=== PATIENT | female | born 1965 | race Caucasian/White ===

== ENCOUNTER → 2016-12-02 | Outpatient (CLI) | payer BC ==
--- NOTE | 2016-12-05 10:04 | MM ---
Reason for exam: screening (asymptomatic). Last mammogram was performed 5 years and 7 months ago. Physical Findings: A clinical breast exam by your physician is recommended on an annual basis and results should be correlated with mammographic findings. MG Screening Mammo w CAD Bilateral CC and MLO view(s) were taken. Prior study comparison: April 29, 2011, mammogram, performed at [facility]. August 30, 2007, mammogram, performed at [facility]. There are scattered fibroglandular densities. Benign calcifications. There is no discrete abnormality. No significant changes when compared with prior studies. ASSESSMENT: Benign, BI-RAD 2 RECOMMENDATION: Routine screening mammogram of both breasts in 1 year.
== END | disposition home or self-care (01) ==
LOC: RADMAMWWP 12:24
PROVIDERS: ATTEND Internal Medicine
DX: Z12.31 Encounter for screening mammogram for malignant neoplasm of breast (principal)

== ENCOUNTER 2017-04-14 21:00 | Emergency (ER) | payer BC | END 2017-04-14 23:55 | disposition home or self-care (01) | LOC: EC 21:00 | DX: R04.0 Epistaxis (principal); J32.9 Chronic sinusitis, unspecified | CPT/HCPCS: 99282 ==

== ENCOUNTER 2021-07-14 14:33 | Emergency (ER) | payer BC ==
[2021-07-14] MEDS ORDERED: KETOROLAC 15 MG/ML 1 ML VIAL IM STA (15:17)
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
[2021-07-14] MEDS ORDERED: predniSONE 20 MG TAB PO STA (16:43)
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
[2021-07-14 16:59] VITALS: BP 137/81; PULSE 68; RESP 20; TEMP 98
== END 2021-07-14 16:59 | disposition home or self-care (01) ==
LOC: EC 14:33
DX: M43.6 Torticollis (principal); F17.200 Nicotine dependence, unspecified, uncomplicated
CPT/HCPCS: 93005; 72125; 99284; 96372; J1885; J7512

== ENCOUNTER 2021-11-26 07:50 | Emergency (ER) | payer BC ==
[2021-11-26 07:58] VITALS: RESP 18
[2021-11-26] MEDS ORDERED: ACETAMINOPHEN TAB 500 MG TAB PO STA (07:58)
--- NOTE | 2021-11-26 08:01 | ED ---
General Adult HPI - General Chief complaint: Headache Stated complaint: flu symptoms Time Seen by Provider: 11/26/21 07:50 Source: patient, EMS, RN notes reviewed, old records reviewed Mode of arrival: EMS Limitations: no limitations - History of Present Illness Initial comments: This is a 55-year-old female who presents emergency Department stating that she woke up at 12:45 AM and had a headache and had the chills. Patient states she went back to bed when she woke up this morningchills continued as did the headaches so she called the ambulance. Patient denies any shortness of breath or difficulty breathing. Patient denies any neck stiffness. Patient denies any fever. Patient states she did not take any Motrin or Tylenol. Patient denies any abdominal pain. Patient denies any nausea vomiting. Patient denies any dysuria hematuria urinary frequency. Patient states she had 3 Modera COVID shots. Patient states the headache is worse than normal but it's severe. Patient states is diffuse throughout her head. - Related Data Home Medications Medication Instructions Recorded Confirmed Atorvastatin [Lipitor] 10 mg PO DAILY 04/15/17 07/14/21 Levothyroxine Sodium [Synthroid] 125 mcg PO DAILY 04/15/17 07/14/21 atenoloL [Tenormin] 25 mg PO HS 04/15/17 07/14/21 Cholecalciferol [Vitamin D3 (25 25 mcg PO DAILY 07/14/21 07/14/21 Mcg = 1000 Iu)] Previous Rx's Medication Instructions Recorded methocarbamoL [Robaxin] 750 mg PO QID PRN #24 tab 07/14/21 predniSONE [Deltasone] 20 mg PO BID #10 tab 07/14/21 Nirmatrelvir/Ritonavir [Paxlovid 1 each PO BID 5 Days tab 11/26/21 2X150 mg-100 mg (Eua)] Allergies Allergy/AdvReac Type Severity Reaction Status Date / Time Iodinated Contrast Media Allergy Anaphylaxis Verified 07/14/21 15:54 [Iodinated Contrast- Oral and IV Dye] Review of Systems ROS Statement: Those systems with pertinent positive or pertinent negative responses have been documented in the HPI. ROS Other: All systems not noted in ROS Statement are negative. Past Medical History Past Medical History: Thyroid Disorder Additional Past Medical History / Comment(s): syncope History of Any Multi-Drug Resistant Organisms: None Reported Past Surgical History: Section, Hysterectomy Past Psychological History: No Psychological Hx Reported Smoking Status: Current every day smoker Past Alcohol Use History: None Reported Past Drug Use History: None Reported General Exam - General Exam Comments Initial Comments: GENERAL: Patient is well-developed and well-nourished. Patient is nontoxic and well- hydrated and is in mild distress. ENT: Neck is soft and supple. No significant lymphadenopathy is noted. Oropharynx is clear. Moist mucous membranes. Neck has full range of motion without eliciting any pain. EYES: The sclera were anicteric and conjunctiva were pink and moist. Extraocular movements were intact and pupils were equal round and reactive to light. Eyelids were unremarkable. PULMONARY: Unlabored respirations. Good breath sounds bilaterally. No audible rales rhonchi or wheezing was noted. CARDIOVASCULAR: There is a regular rate and rhythm without any murmurs gallops or rubs. ABDOMEN: Soft and nontender with normal bowel sounds. SKIN: Skin is clear with no lesions or rashes and otherwise unremarkable. NEUROLOGIC: Patient is alert and oriented x3. Cranial nerves II through XII are grossly intact. Motor and sensory are also intact. Normal speech, volume and content. Symmetrical smile. MUSCULOSKELETAL: Normal extremities with adequate strength and full range of motion. LYMPHATICS: No significant lymphadenopathy is noted PSYCHIATRIC: Normal psychiatric evaluation. Limitations: no limitations Course Vital Signs 11/26/21 07:52 Temperature 99.3 F Pulse Rate 82 Respiratory 18 Rate Blood Pressure 108/71 O2 Sat by Pulse 95 Oximetry Medical Decision Making - Medical Decision Making Chest x-ray shows no acute abnormality. We did not have any monoclonal antibodies for the patient's COVID. - Lab Data Result diagrams: 11/26/21 08:01 11/26/21 08:01 Lab Results 11/26/21 11/26/21 11/26/21 Range/Units 08:01 08:01 08:01 WBC 4.7 (3.8-10.6) k/uL RBC 4.43 (3.80-5.40) m/uL Hgb 13.4 (11.4-16.0) gm/dL Hct 41.4 (34.0-46.0) % MCV 93.4 (80.0-100.0) fL MCH 30.2 (25.0-35.0) pg MCHC 32.3 (31.0-37.0) g/dL RDW 12.8 (11.5-15.5) % Plt Count 131 L (150-450) k/uL MPV 7.1 Neutrophils % 85 % Lymphocytes % 6 % Monocytes % 5 % Eosinophils % 2 % Basophils % 1 % Neutrophils # 4.0 (1.3-7.7) k/uL Lymphocytes # 0.3 L (1.0-4.8) k/uL Monocytes # 0.2 (0-1.0) k/uL Eosinophils # 0.1 (0-0.7) k/uL Basophils # 0.0 (0-0.2) k/uL Sodium 132 L (137-145) mmol/L Potassium 3.9 (3.5-5.1) mmol/L Chloride 104 (98-107) mmol/L Carbon Dioxide 21 L (22-30) mmol/L Anion Gap 7 mmol/L BUN 13 (7-17) mg/dL Creatinine 0.71 (0.52-1.04) mg/dL Est GFR (CKD-EPI)AfAm >90 (>60 ml/min/1.73 sqM) Est GFR (CKD-EPI)NonAf >90 (>60 ml/min/1.73 sqM) Glucose 94 (74-99) mg/dL Calcium 8.4 (8.4-10.2) mg/dL Total Bilirubin 0.5 (0.2-1.3) mg/dL AST 24 (14-36) U/L ALT 15 (4-34) U/L Alkaline Phosphatase 85 (38-126) U/L Total Protein 6.7 (6.3-8.2) g/dL Albumin 4.0 (3.5-5.0) g/dL Coronavirus (PCR) Detected A (Not Detectd) Disposition Clinical Impression: COVID-19 Disposition: HOME SELF-CARE Condition: Good Prescriptions: Nirmatrelvir/Ritonavir [Paxlovid 2X150 mg-100 mg (Eua)] 1 each PO BID 5 Days tab Is patient prescribed a controlled substance at d/c from ED?: No Referrals: Dustin Ocampo DO [Primary Care Provider] - 1-2 days Time of Disposition: 09:02
[2021-11-26 08:27] LABS: Basophils % (A) 1 %; Eosinophils # (A) 0.1 k/uL (0-0.7); Eosinophils % (A) 2 %; HCT 41.4 % (34.0-46.0); HGB 13.4 gm/dL (11.4-16.0); Lymphocytes # (A) 0.3 k/uL (1.0-4.8); Lymphocytes % (A) 6 %; MCH 30.2 pg (25.0-35.0); MCHC 32.3 g/dL (31.0-37.0); MCV 93.4 fL (80.0-100.0); Mean Platelet Volume 7.1; Monocytes # (A) 0.2 k/uL (0-1.0); Monocytes % (A) 5 %; Neutrophils % (A) 85 %; Platelet Count 131 k/uL (150-450); RBC 4.43 m/uL (3.80-5.40); RDW 12.8 % (11.5-15.5); WBC 4.7 k/uL (3.8-10.6)
[2021-11-26 08:42] LABS: ALT 15 U/L (4-34); AST 24 U/L (14-36); African American GFR (CKD) >90 (>60 ml/min/1.73 sqM); Alkaline Phosphatase 85 U/L (38-126); Anion Gap 7 mmol/L; Blood Urea Nitrogen 13 mg/dL (7-17); Calcium 8.4 mg/dL (8.4-10.2); Carbon Dioxide 21 mmol/L (22-30); Chloride 104 mmol/L (98-107); Glucose 94 mg/dL (74-99); Non-African American GFR(CKD) >90 (>60 ml/min/1.73 sqM); Potassium 3.9 mmol/L (3.5-5.1); Sodium 132 mmol/L (137-145); Total Bilirubin 0.5 mg/dL (0.2-1.3); Total Protein 6.7 g/dL (6.3-8.2)
--- NOTE | 2021-11-26 08:49 | XR ---
EXAMINATION TYPE: XR chest 2V DATE OF EXAM: 11/26/2021 COMPARISON: NONE HISTORY: Difficulty in breathing. TECHNIQUE: Frontal and lateral views of the chest are obtained. FINDINGS: There is no focal air space opacity, pleural effusion, or pneumothorax seen. The cardiac silhouette size is within normal limits. The osseous structures are intact. IMPRESSION: No acute process.
[2021-11-26 09:31] VITALS: BP 100/53; PULSE 79; TEMP 98.3
[2021-11-26 09:42] LABS: Appearance,Urine Clear (Clear); Bilirubin,Urine Negative (Negative); Blood,Urine Moderate (Negative); Color,Urine Yellow; Glucose,Urine (UA) Negative (Negative); Hyaline Casts,Urine 1 /lpf (0-2); Ketones,Urine Negative (Negative); Leukocyte Esterase,Urine Negative (Negative); Mucus,Urine Few /hpf; Nitrite,Urine Negative (Negative); Protein,Urine Trace (Negative); RBC,Urine 3 /hpf (0-5); Specific Gravity,Urine 1.019 (1.001-1.035); Squamous Epithelial Cell,Urine 1 /hpf (0-4); WBC,Urine 1 /hpf (0-5)
== END 2021-11-26 09:31 | disposition home or self-care (01) ==
LOC: EC 07:50
DX: U07.1 COVID-19 (principal); E07.9 Disorder of thyroid, unspecified; F17.200 Nicotine dependence, unspecified, uncomplicated; Z91.041 Radiographic dye allergy status; Z79.890 Hormone replacement therapy
CPT/HCPCS: 36415; 71046; 80053; 81001; 85025; 87635; 99284

== ENCOUNTER → 2022-09-05 | Outpatient (CLI) | payer OTHER ==
[2022-09-05 16:03] LABS: Anion Gap 10.9 mmol/L (10.00-18.00); Carbon Dioxide 25.8 mmol/L (20.0-27.5); Potassium 5.3 mmol/L (3.5-5.5)
[2022-09-05 16:54] LABS: Basophils # (A) 0.04 X 10*3/uL (0.00-0.10); Basophils % (A) 0.5 %; Eosinophils # (A) 0.13 X 10*3/uL (0.04-0.35); Eosinophils % (A) 1.7 %; HCT 46.1 % (37.2-46.3); HGB 14.6 g/dL (12.0-15.0); Immature Grans, Automated 0.5 %; Lymphocytes # (A) 1.29 X 10*3/uL (0.90-5.00); Lymphocytes % (A) 16.6 %; MCH 30.9 pg (27.0-32.0); MCHC 31.7 g/dL (32.0-37.0); MCV 97.7 fL (80.0-97.0); Mean Platelet Volume 10.4 fL (9.5-12.2); Monocytes % (A) 3.9 %; NRBC Per 100 WBC 0 /100 WBCS (0.0-0.0); Neutrophils # (A) 5.98 X 10*3/uL (1.80-7.70); Neutrophils % (A) 76.8 %; Platelet Count 185 X 10*3/uL (140-440); RBC 4.72 X 10*6/uL (4.10-5.20); RDW 13.2 % (11.5-14.5); WBC 7.78 X 10*3/uL (4.50-10.00)
== END | disposition home or self-care (01) ==
LOC: LABWHC1 10:58
PROVIDERS: ATTEND Orthopaedic Surgery
DX: Z01.818 Encounter for other preprocedural examination (principal); M23.91 Unspecified internal derangement of right knee
CPT/HCPCS: 36415; 80051; 85025; 93005

== ENCOUNTER → 2022-09-14 | Outpatient (CLI) | payer OTHER | END | disposition home or self-care (01) | LOC: LABWHC1 13:07 | PROVIDERS: ATTEND Nurse Practitioner Family | DX: I69.911 Memory deficit following unspecified cerebrovascular disease (principal); E55.9 Vitamin D deficiency, unspecified | CPT/HCPCS: 36415; 82306; 82607; 84439; 84443; 84481 ==

== ENCOUNTER 2022-09-29 11:47 | Day surgery (SDC) | payer OTHER ==
[2022-09-26 12:52] VITALS: BMI 30.7
--- NOTE | 2022-09-29 07:44 | HP ---
HISTORY AND PHYSICAL DATE OF SURGERY: Surgery is scheduled for 09/29/2022. HISTORY OF PRESENT ILLNESS: Terra Palmer is a 56-year-old patient seen with progressive right knee pain. We discussed options for treatment, status post right knee arthroscopy. Consent was obtained. PAST MEDICAL HISTORY: Hypertension, hypothyroidism, hyperlipidemia. PAST SURGICAL HISTORY: Appendectomy, section, tonsillectomy. DAILY MEDICATIONS: Atenolol, atorvastatin, levothyroxine, meloxicam. ALLERGIES: None. SOCIAL HISTORY: She denies tobacco use. PHYSICAL EVALUATION OF THE RIGHT KNEE: Range of motion is 0 to 130 degrees. Mild effusion. Tenderness, medial joint line. Positive medial Jez's. Ligament is stable. Hip rotation without pain. Distal neurovascular exam is intact. IMAGING STUDIES: MRI of the right knee revealed medial meniscal tear. Large Perdue cyst and osteoarthritic changes. IMPRESSION: 1. Internal derangement of right knee with medial meniscal tear. 2. Hypertension. 3. Hyperlipidemia. 4. Hypothyroidism. PLAN: Right knee arthroscopy with partial medial meniscectomy and debridement. MMODL / IJN: [id number] /
[~2022-09-29 11:47] MED LIST: DEXAMETHASONE SOD PHOSPHATE 4 MG/ML 1 ML VIAL IV ONE; HYDROmorphone 0.5 MG/0.5 ML SYRINGE IVP PRN; LACTATED RINGERS 1,000 ML IV SCH; LIDOCAINE 1% (10MG/ML) FOR IV START INTRADERMA PRN; ONDANSETRON 4 MG/2 ML VIAL IVP ONE; droPERidol 5 MG/2 ML VIAL IVP ONE
[2022-09-29] MEDS ORDERED: PROPOFOL 10 MG/ML 20 ML VIAL IV ONE (12:47)
[2022-09-29] MEDS ORDERED: fentaNYL (PF) 50 MCG/ML 2 ML AMP ONE (12:47)
[2022-09-29] MEDS ORDERED: MIDAZOLAM 2 MG/2 ML VIAL ONE (12:47)
[2022-09-29] MEDS ORDERED: ePHEDrine 50 MG/ML 1 ML VIAL ONE (12:47)
[2022-09-29] MEDS ORDERED: LIDOCAINE 2% INJ 20 MG/ML (2 ML VIAL) ONE (12:47)
[2022-09-29] MEDS ORDERED: BUPIVACAINE (PF) 0.25% 30 ML VIAL SQ ONE ×2 (13:10→13:20)
[2022-09-29 13:36] VITALS: TEMP 97.2
--- NOTE | 2022-09-29 13:36 | P.OP ---
Date of Procedure: 09/29/22 Preoperative Diagnosis: Internal derangement right knee Postoperative Diagnosis: 1. Tear medial and lateral meniscus right knee 2. Grade 4 chondromalacia femoral sulcus right knee 3. Grade 2 chondromalacia medial femoral condyle right 4. Reactive synovitis medial, lateral and suprapatellar compartments right knee Procedure(s) Performed: 1. Arthroscopic partial medial and lateral meniscectomy right knee 2. Arthroscopic microfracture femoral sulcus right knee 3. Arthroscopic partial synovectomy medial, lateral and suprapatellar compartments right knee 4. Arthroscopic chondroplasty medial femoral condyle right knee Anesthesia: JENA, local Surgeon: Jorge Stone Estimated Blood Loss (ml): 7 Pathology: none sent Condition: stable Disposition: PACU Indications for Procedure: 56-year-old patient was seen with progressive right knee pain. After treatment options were discussed with her, she elected to proceed with arthroscopy. Operative Findings: See description of procedure Description of Procedure: Patient was taken to the operative suite. Patient underwent a general anesthetic by the department of anesthesia. Patient was given preoperative antibiotics. The right lower extremity was placed in a well-padded arthroscopic leg sanchez. The right leg was prepped and draped in the normal sterile orthopedic fashion. A lateral parapatellar and suprapatellar incision was made. Trochars were inserted. Arthroscopy was initiated. Suprapatellar pouch revealed diffuse thick reactive synovitis. The patellofemoral joint appeared to articulate congruently. There was grade 1 chondromalacia of the patella with no tears and grade 4 chondromalacia of the femoral sulcus with areas of exposed bone. The scope was guided into the medial gutter. No loose bodies or plica were identified. The scope was then guided into the medial compartment. A medial parapatellar incision was made. Trocar inserted followed by probe. There was a radial tear posterior horn medial meniscus. There were grade 1/2 chondromalacia changes medial femoral condyle with some osteochondral flap tears. There was thick reactive synovitis anteriorly. I performed a partial medial meniscectomy getting down to stable meniscal tissue. I performed a chondroplasty of the medial femoral condyle getting down to stable osteochondral tissue. I performed a partial synovectomy decompressing the reactive synovitis. The residual meniscus was probed and was found to be stable. The residual osteochondral surface was stable. There was good decompression of the synovitis. Scope and probe were then guided into the intercondylar notch. Cruciates were identified, probed and found to be stable. The scope and probe were then guided into lateral compartment. For was a radial tear mid body lateral meniscus. There was no chondromalacia involving lateral compartment. Her was some thick reactive synovitis anteriorly. I performed a partial lateral meniscectomy getting down to stable meniscal tissue. I performed a partial s ynovectomy compressing the reactive synovitis. The residual meniscus was stable. There was good decompression of the synovitis. The scope was in guided back into the suprapatellar compartment. I used a motorized shaver and I debrided out some piecemeal fragments of meniscus I encountered. I now removed the shaver. I introduced a microfracture awl. I performed a microfracture to 3 separate areas of exposed bone in the femoral sulcus penetrating the bone with resultant bleeding at the microfracture sites. I now introduced a motorized shaver and performed a partial synovectomy. The shaver was removed. There was good decompression of the synovitis. There is the residual osteochondral surface of the femoral sulcus appears stable. I took one more look around the entire knee, no residual debris. Instruments were now removed from the joint. The joint was infiltrated with .25% Marcaine. Steri-Strips were applied to the portal sites. Sterile dressings were applied. The patient was placed into a NURIA hose. No tourniquet was utilized. The patient was awakened, transferred to a bed and taken to recovery stable satisfactory condition.
[2022-09-29 13:47] VITALS: RESP 16
[2022-09-29 14:33] VITALS: BP 149/77; PULSE 89
== END 2022-09-29 14:51 | disposition home or self-care (01) ==
LOC: OR 11:47
PROVIDERS: ATTEND Orthopaedic Surgery
DX: S83.241A Other tear of medial meniscus, current injury, right knee, initial encounter (principal); S83.281A Other tear of lateral meniscus, current injury, right knee, initial encounter; M65.861 Other synovitis and tenosynovitis, right lower leg; M94.261 Chondromalacia, right knee; M17.11 Unilateral primary osteoarthritis, right knee; M71.21 Synovial cyst of popliteal space [Baker], right knee; I10 Essential (primary) hypertension; E78.5 Hyperlipidemia, unspecified; E03.9 Hypothyroidism, unspecified; F17.200 Nicotine dependence, unspecified, uncomplicated; F41.9 Anxiety disorder, unspecified; F32.A Depression, unspecified; Z79.890 Hormone replacement therapy; Z79.899 Other long term (current) drug therapy; Z91.041 Radiographic dye allergy status
CPT/HCPCS: 29879; 29880; J2250; J1100; J0690; J2405; J3010; J2704; J2001

== ENCOUNTER → 2022-11-09 | Outpatient (CLI) | payer OTHER ==
[2022-11-09 20:13] LABS: Anion Gap 13.8 mmol/L (4.00-12.00); Carbon Dioxide 25.2 mmol/L (21.6-31.8)
[2022-11-09 20:36] LABS: HGB 14.6 d/dL (12.0-15.0); MCH 31.3 pg (27.0-32.0); MCHC 33.2 d/dL (32.0-37.0); MCV 94.2 FL (80.0-97.0); Mean Platelet Volume 10.4 FL (9.5-12.2); NRBC Per 100 WBC 0 X 10*3/uL (0.00-0.01); Platelet Count 185 X 10*3/uL (140-440); RBC 4.67 X 10*6/uL (4.10-5.20); RDW 13.2 % (11.5-14.5); WBC 8.53 X 10*3/uL (4.50-10.00)
[2022-11-09 21:06] LABS: Basophils # (A) 0.03 X 10*3/uL (0.00-0.10); Basophils % (A) 0.4 %; Eosinophils # (A) 0.13 X 10*3/uL (0.04-0.35); Eosinophils % (A) 1.5 %; Lymphocytes # (A) 1.55 X 10*3/uL (0.90-5.00); Lymphocytes % (A) 18.2 %; Monocytes # (A) 0.43 X 10*3/uL (0.20-1.00); Neutrophils # (A) 6.35 X 10*3/uL (1.80-7.70); Neutrophils % (A) 74.4 %
== END | disposition home or self-care (01) ==
LOC: LABWHC1 15:25
PROVIDERS: ATTEND Orthopaedic Surgery
DX: Z01.812 Encounter for preprocedural laboratory examination (principal); M23.92 Unspecified internal derangement of left knee
CPT/HCPCS: 36415; 80051; 85025

== ENCOUNTER 2022-11-23 08:17 | Day surgery (SDC) | payer OTHER ==
[2022-11-17 16:31] VITALS: BMI 30.7
--- NOTE | 2022-11-23 07:34 | HP ---
HISTORY AND PHYSICAL DATE OF SURGERY: 11/23/2022. HISTORY OF PRESENT ILLNESS: Terra Palmer is a 56-year-old patient seen with progressive left knee pain failing conservative treatment measures. After having options discussed, she elected to proceed with left knee arthroscopy. Consent regarding the procedure was obtained. PAST MEDICAL HISTORY: Hypertension, hyperlipidemia, and hypothyroidism. PAST SURGICAL HISTORY: Appendectomy, section, and tonsillectomy. DAILY MEDICATIONS: 1. Atenolol. 2. Atorvastatin. 3. Levothyroxine. 4. Multivitamin. ALLERGIES: None. SOCIAL HISTORY: She smokes cigarettes. PHYSICAL EVALUATION OF THE LEFT KNEE: Range of motion is 0 to 130 degrees. Mild effusion. Tenderness in the medial joint line. Medial patellofemoral crepitus on range of motion. Positive medial Jez's. Ligaments are stable. Hip rotation is without pain. Distal neurovascular exam is intact. IMAGING STUDIES: Radiographs of the left knee revealed mild osteoarthritis. MRI left knee revealed medial meniscal tear and Perdue's cyst. IMPRESSION: 1. Internal derangement of left knee with medial meniscal tear. 2. Hypertension. 3. Hyperlipidemia. 4. Hypothyroidism. PLAN: Left knee arthroscopy with partial medial meniscectomy and debridement. MMODL / IJN: [id number] /
[~2022-11-23 08:17] MED LIST changes: -HYDROmorphone 0.5 MG/0.5 ML SYRINGE IVP PRN; +SCOPOLAMINE 1 MG/72 HR PATCH TRANSDERM ONE
[2022-11-23] MEDS ORDERED: BUPIVACAINE (PF) 0.25% 30 ML VIAL SQ ONE ×2 (09:18→09:48)
[2022-11-23] MEDS ORDERED: fentaNYL (PF) 50 MCG/ML 2 ML AMP ONE (09:23)
[2022-11-23] MEDS ORDERED: PROPOFOL 10 MG/ML 20 ML VIAL IV ONE (09:23)
[2022-11-23] MEDS ORDERED: MIDAZOLAM 2 MG/2 ML VIAL ONE (09:23)
[2022-11-23] MEDS ORDERED: LIDOCAINE 2% INJ 20 MG/ML (2 ML VIAL) ONE (09:23)
[2022-11-23 10:08] VITALS: RESP 16; TEMP 96.9
--- NOTE | 2022-11-23 10:11 | P.OP ---
Date of Procedure: 11/23/22 Preoperative Diagnosis: Internal derangement left knee Postoperative Diagnosis: 1. Tear medial meniscus left knee 2. Grade 3/4 chondromalacia lateral femoral condyle left knee 3. Reactive synovitis medial, lateral and suprapatellar compartments left knee 4. Grade 3 chondromalacia medial femoral condyle left knee 5. Grade 1 chondromalacia patella left knee Procedure(s) Performed: 1. Arthroscopic partial medial meniscectomy left knee 2. Arthroscopic microfracture lateral femoral condyle left knee 3. Arthroscopic partial synovectomy medial, lateral and suprapatellar compartments left knee 4. Arthroscopic chondroplasty medial femoral condyle left knee 5. Arthroscopic chondroplasty lateral femoral condyle left knee 6. Arthroscopic chondroplasty patella left knee Anesthesia: ARTHUR, local Surgeon: Jorge Stone Estimated Blood Loss (ml): 6 Pathology: none sent Condition: stable Disposition: PACU Indications for Procedure: 56-year-old patient seen with progressive left knee pain. After having treatment options discussed, she elected to proceed with arthroscopy. Operative Findings: See description of procedure Description of Procedure: Patient was taken to the operative suite. Patient underwent a general anesthetic by the department of anesthesia. Patient was given preoperative antibiotics. The left lower extremity was placed in a well-padded arthroscopic leg sanchez. The left leg was prepped and draped in the normal sterile orthopedic fashion. A lateral parapatellar and suprapatellar incision was made. Trochars were inserted. Arthroscopy was initiated. Suprapatellar pouch revealed diffuse thick reactive synovitis. The patellofemoral joint appeared to articulate congruently. There was grade 1 chondromalacia of the patellofemoral joint with some small osteochondral tears present. The scope was guided into the medial gutter. No loose bodies or plica were identified. The scope was then guided into the medial compartment. A medial parapatellar incision was made. Trocar inserted followed by probe. There was a small radial tear involving the posterior horn of the medial meniscus. There was an area of grade 2/3 chondromalacia medial femoral condyle with a very large osteochondral flap tear. There was some thick reactive synovitis anteriorly. I performed a partial medial meniscectomy getting down to stable meniscal tissue. I performed a chondroplasty of the medial femoral condyle getting down to stable osteochondral tissue. I performed a partial synovectomy decompressing the reactive synovitis. The residual meniscus was stable. The residual osteochondral surface appeared stable with grade 3 chondromalacia now present. There was good decompression of the synovitis anteriorly. Scope and probe were then guided into the intercondylar notch. Cruciates were identified, probed and found to be stable. The scope and probe were then guided into lateral compartment. At all meniscus was probed and was found to be stable. There was some thick reactive synovitis anteriorly. There was an area of grade 3/4 chondromalacia weightbearing surface lateral femoral condyle with large osteochondral flap tears present. I introduced a motorized shaver and I performed a chondroplasty of the lateral femoral condyle getting down to stable osteochondral tissue. I now performed a partial synovectomy decompressing the thick reactive some-itis anteriorly. The shaver was now removed. There was good decompression of synovitis I did note an area centrally of grade 4 chondromalacia with a small area of exposed bone along the weightbearing surface lateral femoral condyle. I now introduced a microfracture awl and I performed a microfracture to the area of exposed bone penetrating the bone with resultant bleeding at the microfracture site. The probe was now reintroduced and I noted good stability about the residual osteochondral surface and again noting good decompression of the synovitis. The scope was in guided back into the suprapatellar compartment. I introduced a motorized shaver into the suprapatellar compartment. I performed a chondroplasty of the patella. I performed a partial synovectomy. Shaver was removed. The residual osteochondral surface of the patella was stable. There was good decompression of that synovitis. I now took one more look around the entire knee, no residual debris. Instruments were now removed from the joint. The joint was infiltrated with .25% Marcaine. Steri-Strips were applied to the portal sites. Sterile dressings were applied. The patient was placed into a NURIA hose. No tourniquet was utilized. The patient was awakened, transferred to a bed and taken to recovery stable satisfactory condition.
[2022-11-23] MEDS: HYDROmorphone 0.5 MG/0.5 ML SYRINGE IVP PRN ×2 (10:21→10:28)
[2022-11-23 11:07] VITALS: BP 139/76; PULSE 72
== END 2022-11-23 11:27 | disposition home or self-care (01) ==
LOC: OR 08:17
PROVIDERS: ATTEND Orthopaedic Surgery
DX: S83.242A Other tear of medial meniscus, current injury, left knee, initial encounter (principal); M65.862 Other synovitis and tenosynovitis, left lower leg; M22.42 Chondromalacia patellae, left knee; F17.210 Nicotine dependence, cigarettes, uncomplicated; I10 Essential (primary) hypertension; E78.5 Hyperlipidemia, unspecified; E03.9 Hypothyroidism, unspecified; Z90.49 Acquired absence of other specified parts of digestive tract; Z90.89 Acquired absence of other organs; Z98.891 History of uterine scar from previous surgery; X58.XXXA Exposure to other specified factors, initial encounter; Z79.899 Other long term (current) drug therapy
CPT/HCPCS: 29881; 29879; J2250; J1100; J0690; J2405; J3010; J2704; J1170; J2001; J0665

== ENCOUNTER 2023-04-22 13:15 | Emergency (ER) | payer BC, OTHER ==
[2023-04-22 13:27] VITALS: BP 124/76; PULSE 83; RESP 20; TEMP 98
--- NOTE | 2023-04-22 13:35 | ED ---
General Adult HPI - General Chief complaint: Extremity Injury, Lower Stated complaint: R Knee Injury Time Seen by Provider: 04/22/23 13:23 Source: patient, RN notes reviewed, old records reviewed Mode of arrival: ambulatory Limitations: no limitations - History of Present Illness Initial comments: 57 yo female presenting with right knee pain after a fall which occurred 2 days prior. Patient has been ambulatory since the fall. This occurred while rollerskating. No other injury. - Related Data Home Medications Medication Instructions Recorded Confirmed Atorvastatin [Lipitor] 10 mg PO DAILY 04/15/17 11/23/22 Levothyroxine Sodium [Synthroid] 150 mcg PO DAILY 04/15/17 11/23/22 atenoloL [Tenormin] 50 mg PO DAILY 04/15/17 11/23/22 Sertraline [Zoloft] 100 mg PO DAILY 09/26/22 11/23/22 Cholecalciferol [Vitamin D3 (25 50 mcg PO DAILY 11/17/22 11/23/22 Mcg = 1000 Iu)] Previous Rx's Medication Instructions Recorded HYDROcodone/APAP 5-325MG [Lemhi 1 tab PO Q6HR PRN #12 tab 09/29/22 5-325] HYDROcodone/APAP 5-325MG [Lemhi 1 tab PO Q6HR PRN #12 tab 11/23/22 5-325] Cefdinir [Omnicef] 300 mg PO Q12HR 10 Days #20 capsule 04/10/23 Allergies Allergy/AdvReac Type Severity Reaction Status Date / Time Iodinated Contrast Media Allergy Anaphylaxis Verified 11/23/22 08:44 [Iodinated Contrast- Oral and IV Dye] Review of Systems ROS Statement: Those systems with pertinent positive or pertinent negative responses have been documented in the HPI. ROS Other: All systems not noted in ROS Statement are negative. Past Medical History Past Medical History: Hyperlipidemia, Thyroid Disorder Additional Past Medical History / Comment(s): syncope History of Any Multi-Drug Resistant Organisms: None Reported Past Surgical History: Section, Hysterectomy, Orthopedic Surgery Past Anesthesia/Blood Transfusion Reactions: No Reported Reaction Past Psychological History: No Psychological Hx Reported Smoking Status: Current every day smoker Past Alcohol Use History: None Reported Past Drug Use History: None Reported - Past Family History Mother Family Medical History: Cancer Father Family Medical History: Deep Vein Thrombosis (DVT) Sister(s) Family Medical History: Cancer General Exam Limitations: no limitations General appearance: alert, in no apparent distress Head exam: Present: atraumatic, normocephalic Eye exam: Present: normal appearance, PERRL ENT exam: Present: normal exam, TM's normal bilaterally Neck exam: Present: normal inspection. Absent: tenderness, meningismus Respiratory exam: Present: normal lung sounds bilaterally. Absent: respiratory distress, wheezes Cardiovascular Exam: Present: regular rate, normal rhythm Extremities exam: Present: full ROM. Absent: tenderness, joint swelling (Right knee) Neurological exam: Present: alert, oriented X3, CN II-XII intact. Absent: motor sensory deficit Psychiatric exam: Present: normal affect, normal mood Skin exam: Present: warm, dry, intact Course Vital Signs 04/22/23 13:16 Temperature 98 F Pulse Rate 83 Respiratory 20 Rate Blood Pressure 124/76 O2 Sat by Pulse 99 Oximetry Medical Decision Making - Medical Decision Making Was pt. sent in by a medical professional or institution (, PA, HAND DEVELOPER, urgent care, hospital, or long-term...) When possible be specific @ -No Did you speak to anyone other than the patient for history (EMS, parent, family, police, friend...)? What history was obtained from this source @ -No Did you review nursing and triage notes (agree or disagree)? Why? @ -I reviewed and agree with nursing and triage notes Were old charts reviewed (outside hosp., previous admission, EMS record, old EKG, old radiological studies, urgent care reports/EKG's, long-term records)? Report findings @ -No old charts were reviewed Differential Diagnosis (chest pain, altered mental status, abdominal pain women, abdominal pain men, vaginal bleeding, weakness, fever, dyspnea, syncope, headache, dizziness, GI bleed, back pain, seizure, CVA, palpatations, mental health, musculoskeletal)? @ -Differential Musculoskeletal Muscular strain, contusion, ligament sprain, fracture, arthritis, septic arthritis, bursitis, cellulitis, muscle spasm, nerve compression, DVT, arterial occlusion, herpes zoster, electrolyte abnormality, tumor.... This is not meant to be in all inclusive list EKG interpreted by me (3pts min.). @ -As above X-rays interpreted by me (1pt min.). @X-ray right knee negative for displaced fracture, no acute CT interpreted by me (1pt min.). @ -None done U/S interpreted by me (1pt. min.). @ -None done What testing was considered but not performed or refused? (CT, X-rays, U/S, labs)? Why? @ -None What meds were considered but not given or refused? Why? @ -None Did you discuss the management of the patient with other professionals (professionals i.e. DrHenrry, PA, HAND DEVELOPER, lab, RT, psych nurse, 7th grade social studies teacher, final finisher, teacher, chief medical officer, lead case manager)? Give summary @ -No Was smoking cessation discussed for >3mins.? @ -No Was critical care preformed (if so, how long)? @ -No Were there social determinants of health that impacted care today? How? (Homelessness, low income, unemployed, alcoholism, drug addiction, transportation, low edu. Level, literacy, decrease access to med. care, usp, rehab)? @ -No Was there de-escalation of care discussed even if they declined (Discuss DNR or withdrawal of care, Hospice)? DNR status @ -No What co-morbidities impacted this encounter? (DM, HTN, Smoking, COPD, CAD, Cancer, CVA, ARF, Chemo, Hep., AIDS, mental health diagnosis, sleep apnea, morbid obesity)? @ -None Was patient admitted / discharged? Hospital course, mention meds given and route, prescriptions, significant lab abnormalities, going to OR and other pertinent info. @ -57-year-old female with right knee contusion, the knee is stable. There is no external signs trauma. Distal pulses are intact. X-ray is negative for dislocation. Undiagnosed new problem with uncertain prognosis? @ -No Drug Therapy requiring intensive monitoring for toxicity (Heparin, Nitro, Insulin, Cardizem)? @ -No Were any procedures done? @ -No Diagnosis/symptom? @ -Acute knee contusion Acute, or Chronic, or Acute on Chronic? @ -[Knee contusion acute Uncomplicated (without systemic symptoms) or Complicated (systemic symptoms)? @ -default Side effects of treatment? @ -No Exacerbation, Progression, or Severe Exacerbation? @ -No Poses a threat to life or bodily function? How? (Chest pain, [place], [place], pneumonia, PE, COPD, DKA, ARF, appy, cholecystitis, CVA, Diverticulitis, Homicidal, Suicidal, threat to staff... and all critical care pts) @ -No Disposition Clinical Impression: Knee sprain Disposition: HOME SELF-CARE Instructions (If sedation given, give patient instructions): Knee Sprain (ED) Is patient prescribed a controlled substance at d/c from ED?: No Referrals: Dustin Ocampo DO [Primary Care Provider] - 1-2 days Jorge Stone DO [Doctor of Osteopathic Medicine] - 1-2 days Time of Disposition: 13:35
--- NOTE | 2023-04-22 14:14 | XR ---
EXAMINATION TYPE: XR knee complete RT DATE OF EXAM: 04/22/2023 1:48 PM CLINICAL INDICATION:Female, 57 years old with history of fall; COMPARISON: None. TECHNIQUE: XR knee complete RT; examined in Frontal, lateral and oblique projections. FINDINGS: No evidence of any acute osseous pathology, soft tissue swelling, or joint effusion is no corby. Tricompartmental osteophyte formation involving the femoral condyles, tibial plateau and patella. Mi ld joint space narrowing. IMPRESSION: 1. No acute osseous pathology. 2. Mild tricompartmental osteoarthritic changes.
== END 2023-04-22 14:22 | disposition home or self-care (01) ==
LOC: EC 13:15
DX: S83.91XA Sprain of unspecified site of right knee, initial encounter (principal); E78.5 Hyperlipidemia, unspecified; E07.9 Disorder of thyroid, unspecified; F17.200 Nicotine dependence, unspecified, uncomplicated; Z79.890 Hormone replacement therapy; Z79.899 Other long term (current) drug therapy; Z91.041 Radiographic dye allergy status; W18.30XA Fall on same level, unspecified, initial encounter; Y93.51 Activity, roller skating (inline) and skateboarding
CPT/HCPCS: 99283

== ENCOUNTER → 2023-06-10 | Outpatient (CLI) | payer BC, OTHER ==
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
== END | disposition home or self-care (01) ==
LOC: RADMRIMAIN 13:42
PROVIDERS: ATTEND Orthopaedic Surgery
DX: S83.241A Other tear of medial meniscus, current injury, right knee, initial encounter (principal); M71.22 Synovial cyst of popliteal space [Baker], left knee

== ENCOUNTER 2023-07-03 13:45 | Emergency (ER) | payer BC ==
[2023-07-03] MEDS: SODIUM CHLORIDE 0.9% 1,000 ML IV STA (14:41)
--- NOTE | 2023-07-03 14:49 | ED ---
Nausea/Vomiting/Diarrhea HPI - General Chief complaint: Nausea/Vomiting/Diarrhea Stated complaint: Headache, NV Time Seen by Provider: 07/03/23 14:47 Source: patient, family, RN notes reviewed Mode of arrival: ambulatory Limitations: no limitations - History of Present Illness Initial comments: Patient is a 57-year-old female presented to the ER with a chief complaint of nausea and vomiting. Daughter providing most of HPI. Daughter reports for the past 2 months she has been having numerous sinus infections, ear infections and feeling dizzy. Patient has been treated multiple times with antibiotics. She states for the past 24 hours patient has been having increased in nausea and vomitin and has been unable to keep anything down. She has tried giving Zofran but patient vomited it up. Patient also was complaining of a headache within the past 24 hours. Denies any double blurry vision, weakness, slurred speech. Daughter does report patient normally is prescribed Papillion for chronic pain and has been out of her medication. She states patient also has been experiencing diarrhea which she believes is to be due to antibiotics but has persisted past antibiotic use. Denies any chest pain, shortness of breath, abdominal pain, urinary complaints, peripheral edema. - Related Data Home Medications Medication Instructions Recorded Confirmed Atorvastatin [Lipitor] 10 mg PO DAILY 04/15/17 11/23/22 Levothyroxine Sodium [Synthroid] 150 mcg PO DAILY 04/15/17 11/23/22 atenoloL [Tenormin] 50 mg PO DAILY 04/15/17 11/23/22 Sertraline [Zoloft] 100 mg PO DAILY 09/26/22 11/23/22 Cholecalciferol [Vitamin D3 (25 50 mcg PO DAILY 11/17/22 11/23/22 Mcg = 1000 Iu)] Previous Rx's Medication Instructions Recorded HYDROcodone/APAP 5-325MG [Papillion 1 tab PO Q6HR PRN #12 tab 09/29/22 5-325] HYDROcodone/APAP 5-325MG [Pap[place] 1 tab PO Q6HR PRN #12 tab 11/23/22 5-325] Cefdinir [Omnicef] 300 mg PO Q12HR 10 Days #20 capsule 04/10/23 Azithromycin [Zithromax Z Pack] 0 tab PO DIRECTED #6 tab 07/03/23 Ondansetron Odt [Zofran Odt] 4 mg PO Q8HR PRN #10 tab 07/03/23 Allergies Allergy/AdvReac Type Severity Reaction Status Date / Time Iodinated Contrast Media Allergy Anaphylaxis Verified 11/23/22 08:44 [Iodinated Contrast- Oral and IV Dye] Review of Systems ROS Statement: Those systems with pertinent positive or pertinent negative responses have been documented in the HPI. ROS Other: All systems not noted in ROS Statement are negative. Past Medical History Past Medical History: Hyperlipidemia, Thyroid Disorder Additional Past Medical History / Comment(s): syncope History of Any Multi-Drug Resistant Organisms: None Reported Past Surgical History: Section, Hysterectomy, Orthopedic Surgery Past Anesthesia/Blood Transfusion Reactions: No Reported Reaction Past Psychological History: No Psychological Hx Reported Smoking Status: Current every day smoker Past Alcohol Use History: None Reported Past Drug Use History: None Reported - Past Family History Mother Family Medical History: Cancer Father Family Medical History: Deep Vein Thrombosis (DVT) Sister(s) Family Medical History: Cancer General Exam Limitations: no limitations General appearance: alert, in no apparent distress Head exam: Present: atraumatic, normocephalic, normal inspection Eye exam: Present: normal appearance, PERRL, EOMI. Absent: scleral icterus, conjunctival injection, periorbital swelling ENT exam: Present: normal exam, normal oropharynx, mucous membranes moist, TM's normal bilaterally Neck exam: Present: normal inspection. Absent: tenderness, meningismus, lymphadenopathy Respiratory exam: Present: normal lung sounds bilaterally. Absent: respiratory distress, wheezes, rales, rhonchi, stridor Cardiovascular Exam: Present: regular rate, normal rhythm, normal heart sounds. Absent: systolic murmur, diastolic murmur, rubs, gallop, clicks GI/Abdominal exam: Present: soft, normal bowel sounds. Absent: distended, tenderness, guarding, rebound, rigid Neurological exam: Present: alert, oriented X3, CN II-XII intact Psychiatric exam: Present: normal affect, normal mood Skin exam: Present: warm, dry, intact, normal color. Absent: rash Course Vital Signs 07/03/23 07/03/23 13:48 16:45 Temperature 98.2 F 97.5 F L Pulse Rate 63 64 Respiratory 16 14 Rate Blood Pressure 149/96 152/80 O2 Sat by Pulse 95 95 Oximetry Medical Decision Making - Medical Decision Making Was pt. sent in by a medical professional or institution (OSCAR Mccann, SUPPLY TECHNICIAN, urgent care, hospital, or penitentiary...) When possible be specific @ -No Did you speak to anyone other than the patient for history (EMS, parent, family, police, friend...)? What history was obtained from this source @ -[Daughter providing HPI and past medical history. Did you review nursing and triage notes (agree or disagree)? Why? @ -I reviewed and agree with nursing and triage notes Were old charts reviewed (outside hosp., previous admission, EMS record, old EKG, old radiological studies, urgent care reports/EKG's, penitentiary records)? Report findings @ -No old charts were reviewed Differential Diagnosis (chest pain, altered mental status, abdominal pain women, abdominal pain men, vaginal bleeding, weakness, fever, dyspnea, syncope, headache, dizziness, GI bleed, back pain, seizure, CVA, palpatations, mental health, musculoskeletal)? @ -COVID, RSV, influenza, viral sinusitis, pneumonia this list is not meant to be all-inclusive EKG interpreted by me (3pts min.). @ -As above X-rays interpreted by me (1pt min.). @ -Chest x-ray interpreted by me significant for right lower lobe pneumonia. CT interpreted by me (1pt min.). @ -None done U/S interpreted by me (1pt. min.). @ -None done What testing was considered but not performed or refused? (CT, X-rays, U/S, labs)? Why? @ -None What meds were considered but not given or refused? Why? @ -None Did you discuss the management of the patient with other professionals (professionals i.e. , OSCAR, SUPPLY TECHNICIAN, lab, RT, psych nurse, social welfare administrator, piping designer, teacher, state highway police officer, pillowcase folder)? Give summary @ -No Was smoking cessation discussed for >3mins.? @ -I discussed smoking cessation for greater than 3 minutes. The risk of smok ing were discussed with the patient including but not limited to risks of cancer, stroke, coronary artery disease and COPD. Also discussed with patient were multiple methods of quitting smoking. Lastly we discussed the financial cost of smoking. Was critical care preformed (if so, how long)? @ -No Were there social determinants of health that impacted care today? How? (Homelessness, low income, unemployed, alcoholism, drug addiction, transportation, low edu. Level, literacy, decrease access to med. care, fdc, rehab)? @ -No Was there de-escalation of care discussed even if they declined (Discuss DNR or withdrawal of care, Hospice)? DNR status @ -No What co-morbidities impacted this encounter? (DM, HTN, Smoking, COPD, CAD, Cancer, CVA, ARF, Chemo, Hep., AIDS, mental health diagnosis, sleep apnea, morbid obesity)? @ -Thyroid disorder, smoker Was patient admitted / discharged? Hospital course, mention meds given and route, prescriptions, significant lab abnormalities, going to OR and other pertinent info. @ -Discharge. Patient is a 57-year-old female presenting to the ER with chief complaint of nausea and vomiting. History and physical exam completed. Vitals stable. Patient in no signs of acute distress and nontoxic-appearing. Lung sounds clear to auscultation bilaterally. Labs obtained unremarkable. Chest x- ray interpreted by me significant for right lower lobe and middle lobe pneumonia. COVID, influenza, RSV negative. Patient received IV fluids and antiemetics in the ER. Patient received 1 g IV Rocephin and prescribed azithromycin and zofran. Strict return parameters discussed. I discussed smoking cessation for greater than 3 minutes. The risk of smoking were discussed with the patient including but not limited to risks of cancer, stroke, coronary artery disease and COPD. Also discussed with patient were multiple methods of quitting smoking. Lastly we discussed the financial cost of smoking. Patient discharged stable condition with follow-up to PCP. Patient and daughter expressed understanding and agreement with care plan. Case discussed with ED attending, Dr. Bonilla. Undiagnosed new problem with uncertain prognosis? @ -No Drug Therapy requiring intensive monitoring for toxicity (Heparin, Nitro, Insulin, Cardizem)? @ -No Were any procedures done? @ -No Diagnosis/symptom? @ -Pneumonia Acute, or Chronic, or Acute on Chronic? @ -Acute Uncomplicated (without systemic symptoms) or Complicated (systemic symptoms)? @ -Uncomplicated Side effects of treatment? @ -No Exacerbation, Progression, or Severe Exacerbation? @ -No Poses a threat to life or bodily function? How? (Chest pain, [place], [place], pneumonia, PE, COPD, DKA, ARF, appy, cholecystitis, CVA, Diverticulitis, Homicidal, Suicidal, threat to staff... and all critical care pts) @ -Yes, pneumonia can lead to hypoxia and/or sepsis which is life-threatening.] - Lab Data Result diagrams: 07/03/23 14:25 07/03/23 14:24 Lab Results 07/03/23 07/03/23 07/03/23 Range/Units 14:24 14:24 14:24 WBC (3.8-10.6) k/uL RBC (3.80-5.40) m/uL Hgb (11.4-16.0) gm/dL Hct (34.0-46.0) % MCV (80.0-100.0) fL MCH (25.0-35.0) pg MCHC (31.0-37.0) g/dL RDW (11.5-15.5) % Plt Count (150-450) k/uL MPV Neutrophils % % Lymphocytes % % Monocytes % % Eosinophils % % Basophils % % Neutrophils # (1.3-7.7) k/uL Lymphocytes # (1.0-4.8) k/uL Monocytes # (0-1.0) k/uL Eosinophils # (0-0.7) k/uL Basophils # (0-0.2) k/uL Sodium 130 L (137-145) mmol/L Potassium 4.3 (3.5-5.1) mmol/L Chloride 95 L (98-107) mmol/L Carbon Dioxide 28 (22-30) mmol/L Anion Gap 7 mmol/L BUN 10 (7-17) mg/dL Creatinine 0.62 (0.52-1.04) mg/dL Est GFR (CKD-EPI)AfAm >90 (>60 ml/min/1.73 sqM) Est GFR (CKD-EPI)NonAf >90 (>60 ml/min/1.73 sqM) Glucose 96 (74-99) mg/dL Plasma Lactic Acid Joshua 1.3 (0.7-2.0) mmol/L Calcium 9.3 (8.4-10.2) mg/dL Total Bilirubin 0.6 (0.2-1.3) mg/dL AST 23 (14-36) U/L ALT 21 (4-34) U/L Alkaline Phosphatase 96 (38-126) U/L Total Protein 7.2 (6.3-8.2) g/dL Albumin 4.1 (3.5-5.0) g/dL TSH 0.587 (0.465-4.680) mIU/L Influenza Type A (PCR) Not Detected (Not Detectd) Influenza Type B (PCR) Not Detected (Not Detectd) RSV (PCR) Not Detected (Not Detectd) SARS-CoV-2 (PCR) Not Detected (Not Detectd) 07/03/23 Range/Units 14:25 WBC 9.5 (3.8-10.6) k/uL RBC 4.54 (3.80-5.40) m/uL Hgb 14.3 (11.4-16.0) gm/dL Hct 42.6 (34.0-46.0) % MCV 93.8 (80.0-100.0) fL MCH 31.5 (25.0-35.0) pg MCHC 33.5 (31.0-37.0) g/dL RDW 12.9 (11.5-15.5) % Plt Count 163 (150-450) k/uL MPV 7.4 Neutrophils % 81 % Lymphocytes % 12 % Monocytes % 4 % Eosinophils % 1 % Basophils % 0 % Neutrophils # 7.7 (1.3-7.7) k/uL Lymphocytes # 1.1 (1.0-4.8) k/uL Monocytes # 0.4 (0-1.0) k/uL Eosinophils # 0.1 (0-0.7) k/uL Basophils # 0.0 (0-0.2) k/uL Sodium (137-145) mmol/L Potassium (3.5-5.1) mmol/L Chloride (98-107) mmol/L Carbon Dioxide (22-30) mmol/L Anion Gap mmol/L BUN (7-17) mg/dL Creatinine (0.52-1.04) mg/dL Est GFR (CKD-EPI)AfAm (>60 ml/min/1.73 sqM) Est GFR (CKD-EPI)NonAf (>60 ml/min/1.73 sqM) Glucose (74-99) mg/dL Plasma Lactic Acid Joshua (0.7-2.0) mmol/L Calcium (8.4-10.2) mg/dL Total Bilirubin (0.2-1.3) mg/dL AST (14-36) U/L ALT (4-34) U/L Alkaline Phosphatase (38-126) U/L Total Protein (6.3-8.2) g/dL Albumin (3.5-5.0) g/dL TSH (0.465-4.680) mIU/L Influenza Type A (PCR) (Not Detectd) Influenza Type B (PCR) (Not Detectd) RSV (PCR) (Not Detectd) SARS-CoV-2 (PCR) (Not Detectd) - EKG Data -: EKG Interpreted by Me EKG Comments: EKG taken at 14: 26 shows normal sinus rhythm with no acute ST segment or T wave abnormalities. Ventricular rate 68, GA interval 134, QRS duration 109, QT/QTc 401/419. - Radiology Data Radiology results: report reviewed, image reviewed Disposition Clinical Impression: Pneumonia Disposition: HOME SELF-CARE Condition: Stable Instructions (If sedation given, give patient instructions): Acute Nausea and Vomiting (ED), Pneumonia (ED) Additional Instructions: Please complete full course of antibiotics. Follow-up with PCP in the next 1 to 2 days. Return to the ER for any new or worsening symptoms. Prescriptions: Azithromycin [Zithromax Z Pack] 0 tab PO DIRECTED #6 tab Ondansetron Odt [Zofran Odt] 4 mg PO Q8HR PRN #10 tab PRN Reason: Nausea Is patient prescribed a controlled substance at d/c from ED?: No Referrals: Dustin Ocampo DO [Primary Care Provider] - 1-2 days Time of Disposition: 16:10
[2023-07-03 14:53] LABS: Basophils % (A) 0 %; Eosinophils # (A) 0.1 k/uL (0-0.7); Eosinophils % (A) 1 %; HCT 42.6 % (34.0-46.0); HGB 14.3 gm/dL (11.4-16.0); Lymphocytes # (A) 1.1 k/uL (1.0-4.8); Lymphocytes % (A) 12 %; MCH 31.5 pg (25.0-35.0); MCHC 33.5 g/dL (31.0-37.0); MCV 93.8 fL (80.0-100.0); Mean Platelet Volume 7.4; Monocytes # (A) 0.4 k/uL (0-1.0); Monocytes % (A) 4 %; Neutrophils # (A) 7.7 k/uL (1.3-7.7); Neutrophils % (A) 81 %; Platelet Count 163 k/uL (150-450); RBC 4.54 m/uL (3.80-5.40); RDW 12.9 % (11.5-15.5); WBC 9.5 k/uL (3.8-10.6)
[2023-07-03] MEDS: METOCLOPRAMIDE 5 MG/ML 2 ML VIAL IVP STA (14:54)
[2023-07-03 15:09] LABS: ALT 21 U/L (4-34); AST 23 U/L (14-36); African American GFR (CKD) >90 (>60 ml/min/1.73 sqM); Albumin 4.1 g/dL (3.5-5.0); Alkaline Phosphatase 96 U/L (38-126); Anion Gap 7 mmol/L; Blood Urea Nitrogen 10 mg/dL (7-17); Calcium 9.3 mg/dL (8.4-10.2); Carbon Dioxide 28 mmol/L (22-30); Chloride 95 mmol/L (98-107); Glucose 96 mg/dL (74-99); Non-African American GFR(CKD) >90 (>60 ml/min/1.73 sqM); Potassium 4.3 mmol/L (3.5-5.1); Sodium 130 mmol/L (137-145); Total Bilirubin 0.6 mg/dL (0.2-1.3); Total Protein 7.2 g/dL (6.3-8.2)
[2023-07-03] MEDS: KETOROLAC 15 MG/ML 1 ML VIAL IVP STA ×2 (15:32→16:39)
--- NOTE | 2023-07-03 15:50 | XR ---
EXAMINATION TYPE: XR chest 2V DATE OF EXAM: 07/03/2023 COMPARISON: 12/19/2021. HISTORY: Cough and headache with nausea and vomiting. TECHNIQUE: Frontal and lateral views of the chest are obtained. IMPRESSION: There are patchy parenchymal changes within the right lower lobe which is suspicious for pneumonia. T hese are also suspected to be mild in the right middle lobe. Follow-up to resolution is recommended. Left lung is clear. The cardiac silhouette and pulmonary vessels are within normal limits.
[2023-07-03] MEDS: ONDANSETRON 4 MG/2 ML VIAL IVP STA (16:39)
[2023-07-03 16:53] VITALS: BP 152/80; PULSE 64; RESP 14; TEMP 97.5
== END 2023-07-03 17:03 | disposition home or self-care (01) ==
LOC: EC 13:45
DX: J18.9 Pneumonia, unspecified organism (principal); I45.9 Conduction disorder, unspecified; E78.5 Hyperlipidemia, unspecified; E07.9 Disorder of thyroid, unspecified; F17.200 Nicotine dependence, unspecified, uncomplicated; Z79.890 Hormone replacement therapy; Z79.899 Other long term (current) drug therapy; Z91.041 Radiographic dye allergy status; Z20.822 Contact with and (suspected) exposure to COVID-19
CPT/HCPCS: 36415; 93005; 80053; 84443; 83605; 85025; 87636; 71046; 99284; 96365; 96375 ×3; 96361; J2765; J2405; J0696; J1885

== ENCOUNTER → 2023-10-27 | Outpatient (CLI) | payer BC ==
[2023-10-27 18:18] LABS: Basophils # (A) 0.04 X 10*3/uL (0.00-0.10); Basophils % (A) 0.5 %; Eosinophils # (A) 0.09 X 10*3/uL (0.04-0.35); Eosinophils % (A) 1.1 %; HCT 45.6 % (37.2-46.3); HGB 14.8 g/dL (12.0-15.0); Lymphocytes # (A) 1.41 X 10*3/uL (0.90-5.00); Lymphocytes % (A) 17.7 %; MCH 30.5 pg (27.0-32.0); MCHC 32.5 g/dL (32.0-37.0); MCV 93.8 FL (80.0-97.0); Mean Platelet Volume 10.5 FL (9.5-12.2); Monocytes # (A) 0.33 X 10*3/uL (0.20-1.00); Monocytes % (A) 4.1 %; NRBC Per 100 WBC 0 X 10*3/uL (0.00-0.01); Neutrophils # (A) 6.08 X 10*3/uL (1.80-7.70); Neutrophils % (A) 76.2 %; Platelet Count 195 X 10*3/uL (140-440); RBC 4.86 X 10*6/uL (4.10-5.20); WBC 7.98 X 10*3/uL (4.50-10.00)
[2023-10-27 19:15] LABS: Anion Gap 11.9 mmol/L (4.00-12.00); Carbon Dioxide 25.1 mmol/L (21.6-31.8)
== END | disposition home or self-care (01) ==
LOC: LABPAT 11:34
PROVIDERS: ATTEND Orthopaedic Surgery
DX: Z01.818 Encounter for other preprocedural examination (principal)
CPT/HCPCS: 36415; 80051; 85025; 93005

== ENCOUNTER 2023-11-10 10:34 | Day surgery (SDC) | payer BC ==
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
--- NOTE | 2023-11-09 20:12 | HP ---
HISTORY AND PHYSICAL ADDENDUM: I have discussed the risks, benefits and alternative therapies for the above-mentioned procedure and for both sedation/analgesia as well as necessary blood product administration, if indicated, as they pertain to this patient. The patient has indicated her understanding and acceptance of the risks and procedures discussed. JAS / DAVINA: [id number] /
[~2023-11-10 10:34] MED LIST changes: -DEXAMETHASONE SOD PHOSPHATE 4 MG/ML 1 ML VIAL IV ONE; +HYDROmorphone 0.5 MG/0.5 ML SYRINGE IVP PRN; -LACTATED RINGERS 1,000 ML IV SCH; +MIDAZOLAM 2 MG/2 ML VIAL IV PRN; -ONDANSETRON 4 MG/2 ML VIAL IVP ONE; +Pre Op ABX Message 1 EACH MISC MISCELLANE ONE; -SCOPOLAMINE 1 MG/72 HR PATCH TRANSDERM ONE; -droPERidol 5 MG/2 ML VIAL IVP ONE; +fentaNYL (PF) 50 MCG/ML 2 ML AMP IVP PRN
[2023-11-10] MEDS: ONDANSETRON 4 MG/2 ML VIAL IVP ONE (11:01)
[2023-11-10] MEDS: LACTATED RINGERS 1,000 ML IV SCH (11:01)
[2023-11-10] MEDS: DEXAMETHASONE SOD PHOSPHATE 4 MG/ML 1 ML VIAL IV ONE (11:01)
[2023-11-10] MEDS: IV FLUID CONTINUATION 1,000 ML IV ONE ×3 (11:10→13:04)
[2023-11-10 11:37] LABS: Glucose,Whole Blood 56 mg/dL (70-110)
[2023-11-10 11:37] LABS: Glucose,Whole Blood 139 mg/dL (70-110)
[2023-11-10] MEDS ORDERED: fentaNYL (PF) 50 MCG/ML 2 ML AMP ONE (11:45)
[2023-11-10] MEDS ORDERED: PROPOFOL 10 MG/ML 20 ML VIAL IV ONE (11:45)
[2023-11-10] MEDS: OFLOXACIN 0.3% OPHTH DROPS 5 ML BOTTLE BOTH EYES ONE (12:10)
[2023-11-10 12:41] VITALS: TEMP 97.9
[2023-11-10 12:53] VITALS: RESP 16
[2023-11-10 13:31] VITALS: BP 139/75; PULSE 71
--- NOTE | 2023-11-12 20:55 | OP ---
OPERATIVE REPORT DATE OF SERVICE : 11/10/2023 PREOPERATIVE DIAGNOSIS: Chronic bilateral serous otitis media. POSTOPERATIVE DIAGNOSIS: Chronic bilateral serous otitis media. ANESTHESIA: IV sedation with MAC. OPERATIVE PROCEDURE: Bilateral myringotomy with insertion of plastic Candido-Bobbin ventilation tubes. COMPLICATIONS: None. DESCRIPTION OF PROCEDURE: The patient was placed on the Operating table in the supine position after uneventful induction and IV sedation, satisfactory general anesthesia was obtained. Next, the operating microscope was brought into position over the patient?s right ear where after insertion of a #3 aural speculum, the external canal was cleansed of all wax and debris. The myringotomy knife was used to make an incision in the anterior inferior quadrant of the right tympanic membrane. The middle ear space was suctioned free of all fluid and a 1.1 mm Candido bobbin ventilation tube was inserted without any difficulty. Attention was then directed to the left ear where the same procedure was carried out using the operating microscope, #3 aural speculum, the external auditory canal was cleansed of all wax and debris. The myringotomy knife was used to make an incision in the anterior inferior quadrant of the left tympanic membrane and the middle ear space was suctioned free of all fluid. A 1.1 mm Candido bobbin ventilation tube was inserted without any difficulty. At this point, the procedure was terminated. There were no intraoperative complications. The patient tolerated the procedure well and was returned to the Recovery Room in satisfactory condition. MMTAINAL / IJSb: [id number] /
== END 2023-11-10 13:50 | disposition home or self-care (01) ==
LOC: OR 10:34
PROVIDERS: ATTEND Otolaryngology
DX: H65.23 Chronic serous otitis media, bilateral (principal); I10 Essential (primary) hypertension; E78.00 Pure hypercholesterolemia, unspecified; E03.9 Hypothyroidism, unspecified; J44.9 Chronic obstructive pulmonary disease, unspecified; F41.8 Other specified anxiety disorders; M79.7 Fibromyalgia; F17.200 Nicotine dependence, unspecified, uncomplicated; Z91.041 Radiographic dye allergy status; Z79.899 Other long term (current) drug therapy; Z79.890 Hormone replacement therapy; Z79.82 Long term (current) use of aspirin
CPT/HCPCS: 69436; J1100; J2405; J3010; J2704

== ENCOUNTER 2023-12-07 10:00 | Day surgery (SDC) | payer BC ==
[~2023-12-07 10:00] MED LIST changes: +BUPIVACAINE (PF) 0.25% 30 ML VIAL ONE; +DEXAMETHASONE SOD PHOSPHATE 4 MG/ML 1 ML VIAL ONE; -HYDROmorphone 0.5 MG/0.5 ML SYRINGE IVP PRN; +LACTATED RINGERS 1,000 ML BAG ONE; -LIDOCAINE 1% (10MG/ML) FOR IV START INTRADERMA PRN; +LIDOCAINE 1% INJ 10MG/ML (20 ML MDV) ONE; -MIDAZOLAM 2 MG/2 ML VIAL IV PRN; +ONDANSETRON 4 MG/2 ML VIAL ONE; +PHENYLEPHRINE-0.9% NACL SYG 1,000 MCG/10 ML SYRINGE ONE; +PROPOFOL 10 MG/ML 20 ML VIAL IV ONE; -Pre Op ABX Message 1 EACH MISC MISCELLANE ONE; +ePHEDrine 50 MG/ML 1 ML VIAL ONE; -fentaNYL (PF) 50 MCG/ML 2 ML AMP IVP PRN; +fentaNYL (PF) 50 MCG/ML 2 ML AMP ONE
--- NOTE | 2023-12-15 15:54 | OP ---
OPERATIVE REPORT DATE OF SERVICE : 12/07/2023 PREOPERATIVE DIAGNOSIS: Internal derangement, right knee. POSTOPERATIVE DIAGNOSES: 1. Tear, medial meniscus, right knee. 2. Grade 4 chondromalacia, medial femoral condyle, right knee. 3. Grade 4 chondromalacia of femoral sulcus, right knee. 4. Reactive synovitis, medial, lateral, and suprapatellar compartments, right knee. PROCEDURES PERFORMED: 1. Arthroscopic partial medial meniscectomy, right knee. 2. Arthroscopic microfracture, medial femoral condyle, right knee. 3. Arthroscopic microfracture, femoral sulcus, right knee. 4. Arthroscopic partial synovectomy, medial, lateral, and suprapatellar compartments, right knee. ANESTHESIA: General. COMPLICATIONS: None. ESTIMATED BLOOD LOSS: 6 mL. The patient tolerated the procedure well. INDICATIONS: Terra Palmer is a patient experiencing progressive right knee pain. We discussed the options regarding treatment. She elected to proceed with right knee arthroscopy. Consent was obtained. DESCRIPTION OF PROCEDURE: The patient was taken to the operative suite. She underwent a general anesthetic by the Department of Anesthesia. The right lower extremity was placed in well-padded arthroscopic leg sanchez. She received preoperative IV antibiotics. The right leg was prepped and draped normal sterile orthopedic fashion. Parapatellar lateral incision was made. Trocar was inserted. Arthroscopy initiated. Suprapatellar pouch revealed thick reactive synovitis. There were grade 1, changes of the patella and grade 3/4 chondromalacia changes of the femoral sulcus with at least one area of exposed bone. The scope was guided into the medial gutter. No loose bodies. The scope was guided into the medial compartment. Medial parapatellar incision was made. Trocar was inserted followed by a probe. There was a tear involving the posterior horn of the medial meniscus. There was a grade 3/4 chondromalacia change along the medial femoral condyle area with osteochondral flap tears present. There was thick reactive synovitis present anteriorly. I performed a partial medial meniscectomy, getting down to a stable meniscal tissue. I performed a chondroplasty of the medial femoral condyle, getting down a stable osteochondral tissue. I performed a partial synovectomy, decompressing the reactive synovitis. I did note an area of exposed bone along the distal femoral condyle, measuring under a centimeter. I introduced a microfracture awl. I performed a microfracture to the area of exposed bone, medial femoral condyle, penetrating the bone with resultant bleeding at the microfracture site. The residual meniscus was probed and was found to be stable. The residual osteochondral surface was stable. There was good decompression of the synovitis. The scope and probe were then guided into the intercondylar notch. ACL and PCL identified, probed, stable. Scope probed into the lateral compartment, lateral meniscus probed, stable, mild grade 1 chondromalacia of the lateral compartment, thick reactive synovitis anteriorly. A motorized shaver was introduced. I performed a partial synovectomy. The shaver was removed. There was good decompression of synovitis. The scope was guided back into suprapatellar compartment. I performed a chondroplasty of the femoral sulcus. I noted two areas of exposed bone, 1 measuring about a centimeter in diameter, the other one was 1.5 x 1 cm in diameter. I introduced the microfracture awl. I performed a microfracture to both the areas of exposed bone, penetrating the bone at the femoral sulcus with resultant bleeding at the microfracture sites. I introduced a motorized shaver. I performed a partial synovectomy. I reduced a probe. I probed out the residual femoral sulcus. It was stable. There was good decompression of synovitis. The probe was removed. I took one more look around the entire knee. No residual debris. Instruments now removed from the knee. The portal sites were approximated with Steri-Strips. The joint was infiltrated with 0.25% plain Marcaine totaling 20 mL. Sterile dressings were applied, followed by NURIA rahmane. The patient was now awakened, transferred to a bed, and taken to the recovery in stable condition. MMODL / IJN: [id number] /
--- NOTE | 2024-01-08 10:13 | HP ---
HISTORY AND PHYSICAL DATE OF SURGERY: 12/07/2023. HISTORY OF PRESENT ILLNESS: Terra Palmer is a patient seen with progressive right knee pain. After treatment options were discussed, she elected to proceed with right knee arthroscopy. Consent obtained. PAST MEDICAL HISTORY: Noncontributory. SURGICAL HISTORY: Noncontributory. DAILY MEDICATIONS: Unknown. ALLERGIES: None. SOCIAL HISTORY: Noncontributory. PHYSICAL EVALUATION OF THE RIGHT KNEE: Range of motion is 0-130 degrees. Tenderness along the medial joint line. Positive medial Jez's. Ligaments stable. Hip rotation with pain. Distal neurovascular exam is intact. IMPRESSION: Internal derangement of right knee with medial meniscal tear. PLAN: Right knee arthroscopy with partial medial meniscectomy and debridement. MMODL / IJN: [id number] /
== END 2023-12-07 11:35 ==
LOC: OR 10:00
PROVIDERS: ATTEND Orthopaedic Surgery
DX: S83.241A Other tear of medial meniscus, current injury, right knee, initial encounter (principal); M22.42 Chondromalacia patellae, left knee; M65.161 Other infective (teno)synovitis, right knee; I10 Essential (primary) hypertension; E78.5 Hyperlipidemia, unspecified; J44.9 Chronic obstructive pulmonary disease, unspecified; E03.9 Hypothyroidism, unspecified; F41.8 Other specified anxiety disorders; Z79.890 Hormone replacement therapy; Z79.899 Other long term (current) drug therapy; X58.XXXA Exposure to other specified factors, initial encounter

== ENCOUNTER 2024-01-14 12:40 | Emergency (ER) | payer BC ==
[2024-01-14 12:45] VITALS: RESP 18
[2024-01-14] MEDS: SODIUM CHLORIDE 0.9% 1,000 ML IV STA (13:15)
[2024-01-14 13:29] LABS: Basophils % (A) 0 %; Eosinophils # (A) 0.2 k/uL (0-0.7); Eosinophils % (A) 2 %; HGB 15.2 gm/dL (11.4-16.0); Lymphocytes # (A) 1.2 k/uL (1.0-4.8); Lymphocytes % (A) 14 %; MCH 30.1 pg (25.0-35.0); MCHC 32.4 g/dL (31.0-37.0); Mean Platelet Volume 7.2; Monocytes # (A) 0.3 k/uL (0-1.0); Monocytes % (A) 3 %; Neutrophils # (A) 6.7 k/uL (1.3-7.7); Neutrophils % (A) 77 %; Platelet Count 234 k/uL (150-450); RBC 5.06 m/uL (3.80-5.40); RDW 13.7 % (11.5-15.5); WBC 8.7 k/uL (3.8-10.6)
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
[2024-01-14 13:45] LABS: ALT 17 U/L (4-34); AST 28 U/L (14-36); African American GFR (CKD) >90 (>60 ml/min/1.73 sqM); Alkaline Phosphatase 100 U/L (38-126); Anion Gap 10 mmol/L; Blood Urea Nitrogen 9 mg/dL (7-17); Calcium 10.4 mg/dL (8.4-10.2); Carbon Dioxide 23 mmol/L (22-30); Chloride 103 mmol/L (98-107); Glucose 104 mg/dL (74-99); Lipase 368 U/L (23-300); Non-African American GFR(CKD) >90 (>60 ml/min/1.73 sqM); Potassium 4.1 mmol/L (3.5-5.1); Sodium 136 mmol/L (137-145); Total Bilirubin 0.7 mg/dL (0.2-1.3); Total Protein 8.1 g/dL (6.3-8.2)
[2024-01-14 13:49] LABS: Appearance,Urine Cloudy (Clear); Bilirubin,Urine Negative (Negative); Blood,Urine Negative (Negative); Color,Urine Yellow; Glucose,Urine (UA) Negative (Negative); Ketones,Urine Trace (Negative); Leukocyte Esterase,Urine Negative (Negative); Mucus,Urine Many /hpf; Nitrite,Urine Negative (Negative); Protein,Urine Trace (Negative); RBC,Urine 1 /hpf (0-5); Specific Gravity,Urine 1.024 (1.001-1.035); Squamous Epithelial Cell,Urine 14 /hpf (0-4); WBC,Urine 1 /hpf (0-5)
--- NOTE | 2024-01-14 14:06 | XR ---
EXAMINATION TYPE: XR chest 2V DATE OF EXAM: 01/14/2024 COMPARISON: 07/03/2023 INDICATION: Fever TECHNIQUE: Frontal and lateral views of the chest are obtained. FINDINGS: The heart size is normal. The pulmonary vasculature is normal. The lungs are clear. IMPRESSION: 1. No acute pulmonary process. [facility], , 01/14/2024 2:04 PM
[2024-01-14 14:55] VITALS: BP 135/77; PULSE 69; TEMP 98
[2024-01-14 15:36] LABS: T4, Free (Free Thyroxine) 0.99 ng/dL (0.78-2.19)
== END 2024-01-14 15:16 | disposition left against medical advice (07) ==
LOC: EC 12:40
CPT/HCPCS: 36415; 71046; 80053; 81001; 83605; 83690; 83970; 84439; 84443; 85025; 86308; 87636; 99284

== ENCOUNTER 2024-07-23 12:06 | Emergency (ER) | payer MEDICARE, BC ==
[2024-07-23 13:02] LABS: Influenza A Not Detected (Not Detectd); Influenza B Not Detected (Not Detectd); RSV Not Detected (Not Detectd)
--- NOTE | 2024-07-23 13:15 | XR ---
EXAMINATION TYPE: XR chest 2V DATE OF EXAM: 07/23/2024 CLINICAL INDICATION: Female, 58 years old with history of cough, TECHNIQUE: Frontal and lateral views of the chest are obtained. COMPARISON: Chest x-ray January 14, 2024 FINDINGS: There is new right middle lobe linear scarring or atelectasis. Left lung is clear. The car diac silhouette size is stable and within normal limits. The osseous structures are intact. IMPRESSION: New Right middle lobe linear scarring and/or atelectasis. [facility], , 07/23/2024 1:12 PM
--- NOTE | 2024-07-23 13:18 | ED ---
URI HPI - General Chief Complaint: Upper Respiratory Infection Stated Complaint: SOB Time Seen by Provider: 07/23/24 12:19 Source: patient, RN notes reviewed Mode of arrival: ambulatory Limitations: no limitations - History of Present Illness Initial Comments: 58-year-old female presents emergency department complaining cough congestion x 1 week. Patient notes she has productive cough, burning in her lungs. Patient states she is a smoker. Patient states that states that she has had fever chills cough congestion exposed influenza. Patient denies any other associate symptoms. - Related Data Home Medications Medication Instructions Recorded Confirmed Atorvastatin [Lipitor] 10 mg PO DAILY 04/15/17 11/10/23 Levothyroxine Sodium [Synthroid] 200 mcg PO DAILY 04/15/17 11/10/23 atenoloL [Tenormin] 25 mg PO DAILY 04/15/17 11/10/23 Sertraline [Zoloft] 100 mg PO DAILY 09/26/22 11/10/23 Aspirin [[place] Aspirin EC] 81 mg PO MOWEFR 11/08/23 11/08/23 Cetirizine HCl [Zyrtec] 10 mg PO DAILY 11/08/23 11/10/23 HYDROcodone/APAP 7.5-325MG [[place] 1 tab PO Q6HR PRN 11/08/23 11/10/23 7.5-325] Hair, Skin, And Nails Gummie 1 dose PO DAILY 11/08/23 11/10/23 Vitamin D Gummie 1 dose PO DAILY 11/08/23 11/10/23 Previous Rx's Medication Instructions Recorded Azithromycin [Zithromax Z Pack] 0 tab PO DIRECTED #6 tab 07/23/24 predniSONE 50 mg PO DAILY #5 tab 07/23/24 Allergies Allergy/AdvReac Type Severity Reaction Status Date / Time Iodinated Contrast Media Allergy Anaphylaxis Verified 07/23/24 12:18 [Iodinated Contrast- Oral and IV Dye] Review of Systems ROS Statement: Those systems with pertinent positive or pertinent negative responses have been documented in the HPI. ROS Other: All systems not noted in ROS Statement are negative. 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 Past Anesthesia/Blood Transfusion Reactions: No Reported Reaction Past Psychological History: No Psychological Hx Reported Smoking Status: Current every day smoker Past Alcohol Use History: None Reported Past Drug Use History: None Reported - Past Family History Mother Family Medical History: Cancer Father Family Medical History: Deep Vein Thrombosis (DVT) Sister(s) Family Medical History: Cancer General Exam Limitations: no limitations General appearance: alert, in no apparent distress Head exam: Present: atraumatic, normocephalic, normal inspection Eye exam: Present: normal appearance, PERRL, EOMI. Absent: scleral icterus, conjunctival injection, periorbital swelling ENT exam: Present: normal exam, normal oropharynx, mucous membranes moist Neck exam: Present: normal inspection, full ROM. Absent: tenderness, meningismus, lymphadenopathy Respiratory exam: Present: normal lung sounds bilaterally. Absent: respiratory distress, wheezes, rales, rhonchi, stridor Cardiovascular Exam: Present: regular rate, normal rhythm, normal heart sounds. Absent: systolic murmur, diastolic murmur, rubs, gallop, clicks Course Vital Signs 07/23/24 07/23/24 07/23/24 12:14 12:29 13:27 Temperature 98.1 F 98 F Pulse Rate 72 70 Respiratory 20 18 16 Rate Blood Pressure 119/75 117/82 O2 Sat by Pulse 98 99 Oximetry Medical Decision Making - Medical Decision Making Was pt. sent in by a medical professional or institution (, PA, HOSPICE AIDE, urgent care, hospital, or senior care...) When possible be specific @ -No Did you speak to anyone other than the patient for history (EMS, parent, family, police, friend...)? What history was obtained from this source @ -No Did you review nursing and triage notes (agree or disagree)? Why? @ -I reviewed and agree with nursing and triage notes Were old charts reviewed (outside hosp., previous admission, EMS record, old EKG, old radiological studies, urgent care reports/EKG's, senior care records)? Report findings @ -No old charts were reviewed Differential Diagnosis (chest pain, altered mental status, abdominal pain women, abdominal pain men, vaginal bleeding, weakness, fever, dyspnea, syncope, headache, dizziness, GI bleed, back pain, seizure, CVA, palpatations, mental health, musculoskeletal)? @ -COVID 19, RSV, influenza, pneumonia, acute bronchitis, URI, this list is not all inclusive EKG interpreted by me (3pts min.). @ -None X-rays interpreted by me (1pt min.). @ -Chest x-ray shows linear atelectasis, possible scarring CT interpreted by me (1pt min.). @ -None done U/S interpreted by me (1pt. min.). @ -None done What testing was considered but not performed or refused? (CT, X-rays, U/S, labs)? Why? @ -None What meds were considered but not given or refused? Why? @ -None Did you discuss the management of the patient with other professionals (professionals i.e. , PA, HOSPICE AIDE, lab, RT, psych nurse, social service worker, cisco consultant, teacher, railway patrol officer, corrections caseworker)? Give summary @ -No Was smoking cessation discussed for >3mins.? @ -No Was critical care preformed (if so, how long)? @ -No Were there social determinants of health that impacted care today? How? (Homelessness, low income, unemployed, alcoholism, drug addiction, transportation, low edu. Level, literacy, decrease access to med. care, detention, rehab)? @ -No Was there de-escalation of care discussed even if they declined (Discuss DNR or withdrawal of care, Hospice)? DNR status @ -No What co-morbidities impacted this encounter? (DM, HTN, Smoking, COPD, CAD, Cancer, CVA, ARF, Chemo, Hep., AIDS, mental health diagnosis, sleep apnea, morbid obesity)? @ -[COPD Was patient admitted / discharged? Hospital course, mention meds given and route, prescriptions, significant lab abnormalities, going to OR and other pertinent info. @ -Charge patient has acute tracheobronchitis, COPD. Patient has no evidence of pneumonia negative Cepheid. Patient discharged in stable condition return parameters jinny. Undiagnosed new problem with uncertain prognosis? @ -[No Drug Therapy requiring intensive monitoring for toxicity (Heparin, Nitro, Insulin, Cardizem)? @ -No Were any procedures done? @ -No Diagnosis/symptom? @ -Acute tracheobronchitis Acute, or Chronic, or Acute on Chronic? @ -Acute Uncomplicated (without systemic symptoms) or Complicated (systemic symptoms)? @ -uncomplicated Side effects of treatment? @ -No Exacerbation, Progression, or Severe Exacerbation? @ -No Poses a threat to life or bodily function? How? (Chest pain, USA, MA, pneumonia, PE, COPD, DKA, ARF, appy, cholecystitis, CVA, Diverticulitis, Homicidal, Suicidal, threat to staff... and all critical care pts) @ -No - Lab Data Lab Results 07/23/24 Range/Units 12:19 Influenza Type A (PCR) Not Detected (Not Detectd) Influenza Type B (PCR) Not Detected (Not Detectd) RSV (PCR) Not Detected (Not Detectd) SARS-CoV-2 (PCR) Not Detected (Not Detectd) Disposition Clinical Impression: Acute tracheobronchitis Disposition: HOME SELF-CARE Condition: Stable Instructions (If sedation given, give patient instructions): Upper Respiratory Infection (ED) Additional Instructions: Please return to the Emergency Department if symptoms worsen or any other concerns. Prescriptions: predniSONE 50 mg PO DAILY #5 tab Azithromycin [Zithromax Z Pack] 0 tab PO DIRECTED #6 tab Is patient prescribed a controlled substance at d/c from ED?: No Referrals: Dustin Ocampo DO [Primary Care Provider] - 1-2 days Time of Disposition: 13:17
[2024-07-23 13:30] VITALS: BP 117/82; PULSE 70; RESP 16; TEMP 98
== END 2024-07-23 13:40 | disposition home or self-care (01) ==
LOC: EC 12:06
DX: J20.9 Acute bronchitis, unspecified (principal); F17.200 Nicotine dependence, unspecified, uncomplicated; Z91.041 Radiographic dye allergy status
CPT/HCPCS: 71046; 87636; 99285

== ENCOUNTER 2024-11-04 23:44 | Emergency (ER) | payer MEDICARE, BC ==
[2024-11-04 23:48] VITALS: BP 155/90; PULSE 81; RESP 18; TEMP 97.9
--- NOTE | 2024-11-05 00:06 | ED ---
Extremity Problem HPI - General Chief complaint: Extremity Problem,Nontraumatic Stated complaint: Elbow injury Time Seen by Provider: 11/04/24 23:58 Source: patient, RN notes reviewed Mode of arrival: ambulatory Limitations: no limitations - History of Present Illness Initial comments: This is a 58-year-old female presenting for right elbow and toe issues x 2 days. Patient states she accidentally struck her right elbow against a wall once yesterday and once today with subsequent swelling and pain (3/10). Also endorses bruising over her right foot/toes without known cause. States she is able to ambulate without difficulty and flex/extend her right arm without difficulty. MD Complaint: joint swelling, joint pain Onset/Timin -: days(s) Location: right, upper extremity, lower extremity Severity scale (1-10): 3 Associated Symptoms: denies other symptoms - Related Data Home Medications Medication Instructions Recorded Confirmed Atorvastatin [Lipitor] 10 mg PO DAILY 04/15/17 11/10/23 Levothyroxine Sodium [Synthroid] 200 mcg PO DAILY 04/15/17 11/10/23 atenoloL [Tenormin] 25 mg PO DAILY 04/15/17 11/10/23 Sertraline [Zoloft] 100 mg PO DAILY 09/26/22 11/10/23 Aspirin [Jennings Aspirin EC] 81 mg PO MOWEFR 11/08/23 11/08/23 Cetirizine HCl [Zyrtec] 10 mg PO DAILY 11/08/23 11/10/23 HYDROcodone/APAP 7.5-325MG [[place] 1 tab PO Q6HR PRN 11/08/23 11/10/23 7.5-325] Hair, Skin, And Nails Gummie 1 dose PO DAILY 11/08/23 11/10/23 Vitamin D Gummie 1 dose PO DAILY 11/08/23 11/10/23 Previous Rx's Medication Instructions Recorded Azithromycin [Zithromax Z Pack] 0 tab PO DIRECTED #6 tab 07/23/24 predniSONE 50 mg PO DAILY #5 tab 07/23/24 Ibuprofen [Motrin] 800 mg PO Q8HR PRN #30 tab 11/05/24 Allergies Allergy/AdvReac Type Severity Reaction Status Date / Time Iodinated Contrast Media Allergy Anaphylaxis Verified 11/04/24 23:48 [Iodinated Contrast- Oral and IV Dye] Review of Systems ROS Statement: Those systems with pertinent positive or pertinent negative responses have been documented in the HPI. ROS Other: All systems not noted in ROS Statement are negative. 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 Past Anesthesia/Blood Transfusion Reactions: No Reported Reaction Past Psychological History: No Psychological Hx Reported Smoking Status: Current every day smoker Past Alcohol Use History: None Reported Past Drug Use History: None Reported - Past Family History Mother Family Medical History: Cancer Father Family Medical History: Deep Vein Thrombosis (DVT) Sister(s) Family Medical History: Cancer General Exam Limitations: no limitations General appearance: alert, in no apparent distress Head exam: Present: atraumatic, normocephalic, normal inspection Eye exam: Present: normal appearance, PERRL, EOMI. Absent: scleral icterus, conjunctival injection, periorbital swelling ENT exam: Present: normal exam, mucous membranes moist Neck exam: Present: normal inspection. Absent: tenderness, meningismus, lym phadenopathy Respiratory exam: Present: normal lung sounds bilaterally. Absent: respiratory distress, wheezes, rales, rhonchi, stridor, accessory muscle use Cardiovascular Exam: Present: regular rate, normal rhythm, normal heart sounds. Absent: systolic murmur, diastolic murmur, rubs, gallop, clicks GI/Abdominal exam: Present: soft, normal bowel sounds. Absent: distended, tenderness, guarding, rebound, rigid Extremities exam: Present: full ROM (Right elbow FROM), tenderness (Positive right elbow TTP and olecranon edema without obvious crepitus, deformity), normal capillary refill, joint swelling (Positive right olecranon bursitis without overlying erythema, warmth, open wound), other (Positive RUE distal neurovascular and motor function intact. Radial pulse +2. Positive ecchymosis over dorsal aspect of right foot without significant tenderness, crepitus, deformity or open wound. Patient ambulating without significant pain or change in gait). Absent: pedal edema, calf tenderness Back exam: Present: normal inspection Neurological exam: Present: alert, oriented X3, CN II-XII intact Psychiatric exam: Present: normal affect, normal mood Skin exam: Present: warm, dry, intact, normal color. Absent: rash Course Vital Signs 11/04/24 23:45 Temperature 97.9 F Pulse Rate 81 Respiratory 18 Rate Blood Pressure 155/90 O2 Sat by Pulse 99 Oximetry Medical Decision Making - Medical Decision Making Was pt. sent in by a medical professional or institution (, [facility], LANDSCAPER HELPER, urgent care, hospital, or skilled nursing...) When possible be specific @ -[No] Did you speak to anyone other than the patient for history (EMS, parent, family, police, friend...)? What history was obtained from this source @ -[No] Did you review nursing and triage notes (agree or disagree)? Why? @ -[I reviewed and agree with nursing and triage notes] Were old charts reviewed (outside hosp., previous admission, EMS record, old EKG, old radiological studies, urgent care reports/EKG's, skilled nursing records)? Report findings @ -[No old charts were reviewed] Differential Diagnosis (chest pain, altered mental status, abdominal pain women, abdominal pain men, vaginal bleeding, weakness, fever, dyspnea, syncope, headache, dizziness, GI bleed, back pain, seizure, CVA, palpatations, mental health, musculoskeletal)? @ -Differential Musculoskeletal Muscular strain, contusion, ligament sprain, fracture, arthritis, septic arthritis, bursitis, cellulitis, muscle spasm, nerve compression, DVT, arterial occlusion, herpes zoster, electrolyte abnormality, tumor.... This is not meant to be in all inclusive list EKG interpreted by me (3pts min.). @ -Not done X-rays interpreted by me (1pt min.). @ -[None done] CT interpreted by me (1pt min.). @ -[None done] U/S interpreted by me (1pt. min.). @ -[None done] What testing was considered but not performed or refused? (CT, X-rays, U/S, labs)? Why? @ -[None] What meds were considered but not given or refused? Why? @ -[None] Did you discuss the management of the patient with other professionals (professionals i.e. , [facility], LANDSCAPER HELPER, lab, RT, psych nurse, social economist, brew house supervisor, teacher, administrative hearing officer, rn case mgr)? Give summary @ -[No] Was smoking cessation discussed for >3mins.? @ -[No] Was critical care preformed (if so, how long)? @ -[No] Were there social determinants of health that impacted care today? How? (Homelessness, low income, unemployed, alcoholism, drug addiction, transportation, low edu. Level, literacy, decrease access to med. care, [facility], rehab)? @ -[No] Was there de-escalation of care discussed even if they declined (Discuss DNR or withdrawal of care, Hospice)? DNR status @ -[No] What co-morbidities impacted this encounter? (DM, HTN, Smoking, COPD, CAD, Cancer, CVA, ARF, Chemo, Hep., AIDS, mental health diagnosis, sleep apnea, morbid obesity)? @ -[None] Was patient admitted / discharged? Hospital course, mention meds given and route, prescriptions, significant lab abnormalities, going to OR and other pertinent info. @ -[hospital course] Undiagnosed new problem with uncertain prognosis? @ -[No] Drug Therapy requiring intensive monitoring for toxicity (Heparin, Nitro, Insulin, Cardizem)? @ -[No] Were any procedures done? @ -[No] Diagnosis/symptom? @ -Noninfective olecranon bursitis Acute, or Chronic, or Acute on Chronic? @ -Acute Uncomplicated (without systemic symptoms) or Complicated (systemic symptoms)? @ -Uncomplicated Side effects of treatment? @ -[No] Exacerbation, Progression, or Severe Exacerbation? @ -[No] Poses a threat to life or bodily function? How? (Chest pain, [place], [place], pneumonia, PE, COPD, DKA, ARF, appy, cholecystitis, CVA, Diverticulitis, Homicidal, Suicidal, threat to staff... and all critical care pts) @ -[No] Disposition Clinical Impression: Olecranon bursitis Disposition: HOME SELF-CARE Condition: Good Instructions (If sedation given, give patient instructions): Elbow Bursitis (ED) Prescriptions: Ibuprofen [Motrin] 800 mg PO Q8HR PRN #30 tab PRN Reason: Pain Is patient prescribed a controlled substance at d/c from ED?: No Referrals: Dustin Ocampo DO [Primary Care Provider] - 1-2 days
--- NOTE | 2024-11-05 00:40 | XR ---
EXAM: XR Right Toes, 2 or More Views CLINICAL HISTORY: ITS.REASON XR Reason: pain TECHNIQUE: Frontal, lateral and oblique views of the toes of the right foot. COMPARISON: No relevant prior studies available. FINDINGS: Bones/joints: Unremarkable. No acute fracture. No dislocation. Soft tissues: Unremarkable. No radiopaque foreign body. IMPRESSION: No acute fracture.
--- NOTE | 2024-11-05 00:44 | XR ---
EXAM: XR Right Elbow Complete, 3 or More Views CLINICAL HISTORY: ITS.REASON XR Reason: pain TECHNIQUE: Frontal, lateral and oblique views of the right elbow. COMPARISON: No relevant prior studies available. FINDINGS: Bones/joints: Unremarkable. No acute fracture. No dislocation. Soft tissues: Severe olecranon soft tissue swelling, correlate for olecranon bursitis. IMPRESSION: Severe olecranon soft tissue swelling, correlate for olecranon bursitis.
== END 2024-11-05 01:10 | disposition home or self-care (01) ==
LOC: EC 23:44
DX: M70.21 Olecranon bursitis, right elbow (principal); F17.200 Nicotine dependence, unspecified, uncomplicated; Z91.041 Radiographic dye allergy status
CPT/HCPCS: 99283